=== PATIENT | female | born 1935 | race Caucasian/White ===

== ENCOUNTER 2016-09-24 19:30 | Emergency (ER) | payer OTHER ==
[2016-09-24 19:42] VITALS: BMI 28.0
--- NOTE | 2016-09-24 20:39 | PDOC ---
History of Present Illness - General Chief Complaint: Vomiting/Diarrhea Stated Complaint: VOMITING/DIARRHEA Time Seen by Provider: 09/24/16 19:59 History Source: Patient Exam Limitations: Language Barrier - History of Present Illness Initial Comments: 09/24/16 20:32 Patient is a 81F with a history of gastritis here today for vomiting and diarrhea. She states that the vomiting started 3 hours ago. She vomited six times with a mostly yellow fluid. She denies any bloody or coffee ground emesis. She had one episode of diarrhea, no black tarry stools or araceli blood was in the stool. After vomiting, she felt a little dizzy. She's had decreased PO intake and a headache since vomiting. She denies chest pain, shortness of breath, abdominal pain, and heartburn. She had no fevers or chills. She has no sick contacts at home. She attended a wedding yesterday where she states she ate more than normal, but doesn't know of anyone else there who is sick. Past History - Past Medical History Allergies/Adverse Reactions: Allergies Allergy/AdvReac Type Severity Reaction Status Date / Time No Known Allergies Allergy Verified 09/24/16 19:42 Home Medications: Ambulatory Orders RX: Ca Citrate/Mgox/Vit D3/B6/Min [Citracal Plus Tablet] 1 each PO DAILY RX: Cholecalciferol (Vitamin D3) [Vitamin D-3] 2,000 unit PO DAILY 10/27/12 RX: Esomeprazole Mag Trihydrate [Nexium] 40 mg PO DAILY 10/27/12 RX: Ranitidine [Zantac -] 150 mg PO BID 10/27/12 RX: Glucosamine Sulfate Dipot Chlr [Glucosamine] 1,000 mg PO DAILY 11/12/12 RX: Vit B12/Intrinsic Fact/Folate [Intrinsi Y49-Byighe Tablet] 1 each PO DAILY 11/12/12 RX: Ondansetron HCl [Zofran] 4 mg PO BID PRN #10 tablet 09/24/16 RX: Sulfamethoxazole/Trimethoprim [Bactrim Ds Tablet] 1 each PO BID #5 tablet Anemia: No Asthma: No Cancer: No Cardiac Disorders: No Hx Myocardial Infarction: No CVA: No COPD: No CHF: No Dementia: No Diabetes: No GI Disorders: Yes (IBS;GERD;COLON POLYPS) Disorders: No HTN: No Hypercholesterolemia: Yes Liver Disease: Yes (FATTY LIVER) Seizures: No Thyroid Disease: No Other medical history: hiatal hernia - Surgical History Abdominal Surgery: No Appendectomy: No Cardiac Surgery: No Cholecystectomy: No Lung Surgery: No Neurologic Surgery: No Orthopedic Surgery: No - Psycho/Social/Smoking Cessation Hx Suicidal Ideation: No Smoking History: Never smoked Have you smoked in the past 12 months: No Hx Alcohol Use: No Drug/Substance Use Hx: No Substance Use Type: None Hx Substance Use Treatment: No Review of Systems - Review of Systems Is the patient limited Kosovan proficient: Yes Constitutional: Yes: Loss of Appetite. No: Chills, Fever HEENTM: Yes: Other (Headache). No: Difficulty Swallowing Respiratory: No: Cough, Shortness of Breath, SOB with Exertion Cardiac (ROS): No: Chest Pain, Edema ABD/GI: Yes: Abdominal Distended, Diarrhea, Nausea, Vomiting. No: Rectal Bleeding, Tarry Stools : No: Burning, Dysuria, Flank Pain Neurological: Yes: Headache, Dizziness. No: Weakness *Physical Exam - Vital Signs Last Vital Signs Temp Pulse Resp BP Pulse Ox 97.5 F L 62 18 137/59 99 09/24/16 19:39 09/24/16 19:39 09/24/16 19:39 09/24/16 19:39 09/24/16 19:39 - Physical Exam General Appearance: Yes: Nourished, Appropriately Dressed, Mild Distress HEENT: positive: EOMI, Normal Voice Respiratory/Chest: positive: Lungs Clear, Normal Breath Sounds. negative: Respiratory Distress Cardiovascular: positive: Regular Rhythm, Regular Rate, S1, S2. negative: Edema Gastrointestinal/Abdominal: positive: Normal Bowel Sounds, Tender, Flat, Soft. negative: Organomegaly Musculoskeletal: negative: CVA Tenderness, CVA Tenderness (R), CVA Tenderness (L ) Extremity: positive: Normal Capillary Refill Neurologic: positive: skein bleacher II-XII NML intact, Fully Oriented, Alert, Normal Mood/ Affect ED Treatment Course - LABORATORY CBC & Chemistry Diagram: 09/24/16 21:00 09/24/16 21:00 Medical Decision Making - Medical Decision Making 09/24/16 20:52 Patient is a 81F with a PMH of gastritis here today complaining of vomiting x6 and diarrhea x1 for the past 3 hours. Vital signs are stable. No abdominal pain on exam. Will draw CBC, CMP, UA and perform an ECG. 1L bolus and 4mg zofran given. Will reassess after medications take affect and labs return. 09/24/16 22:47 CMP and CBC normal. UA shows UTI. Reassessment shows no CVA and no suprapubic tenderness. Patient has improved after fluids and zofran. Will start one bactrim ds PO dose here in ED with prescription for a 3 day course as an outpatient. Return precautions given. Will discharge to home. *DC/Admit/Observation/Transfer Diagnosis at time of Disposition: Urinary tract infectious disease - Discharge Dispostion Condition at time of disposition: Improved Admit: No - Prescriptions Prescriptions: RX: Sulfamethoxazole/Trimethoprim [Bactrim Ds Tablet] 1 each PO BID #5 tablet RX: Ondansetron HCl [Zofran] 4 mg PO BID PRN #10 tablet PRN Reason: Nausea - Referrals Referrals: Spencer Duvall MD [Primary Care Provider] - - Patient Instructions Printed Discharge Instructions: Urinary Tract Infection Additional Instructions: Please return if you develop fever, abdominal pain, back pain, shortness of breath, confusion, or you fail to improve. Print Language: ARMENIAN - Attestations Physician Attestion: 09/24/16 20:52 I, Dr. Dayron Salazar, attest that this document has been prepared under my direction and personally reviewed by me in its entirety. I further attest, that it accurately reflects all work, treatment, procedures and medical decision -making performed by me.
[2016-09-24] MEDS ORDERED: ONDANSETRON 4 MG/2 ML VIAL ONE (20:48)
[2016-09-24] MEDS ORDERED: ONDANSETRON 4 MG/2 ML VIAL IVPB ONE (20:48)
[2016-09-24] MEDS ORDERED: SODIUM CHLORIDE 1,000 ML IV STA (20:48)
[2016-09-24 21:30] LABS: BASOPHIL 0.2 % (0-2.0); EOSINOPHIL 0.3 % (0-4.5); MCH 28.7 pg (25.7-33.7); MCHC 33.8 g/dl (32.0-36.0); MEAN CELL VOLUME 84.9 fl (80-96); NEUTROPHILS 82.4 % (42.8-82.8); PLATELET COUNT 120 K/MM3 (134-434); RDW 14.8 % (11.6-15.6); WHITE BLOOD COUNT 8.1 K/mm3 (4.0-10.0)
[2016-09-24 21:39] LABS: ALBUMIN 3.8 g/dl (3.4-5.0); ANION GAP 8 (8-16); BILIRUBIN,TOTAL 0.4 mg/dL (0.2-1.0); CO2 27 mmol/L (21-32); CREATININE 0.6 mg/dL (0.55-1.02); GLUCOSE,RANDOM 133 mg/dL (74-106); SGOT/AST 18 U/L (15-37); SGPT/ALT 22 U/L (12-78)
[2016-09-24 21:40] LABS: ALK PHOS 81 U/L (45-117)
--- NOTE | 2016-09-24 21:51 | PDOC ---
Attending Attestation - Resident Resident Name: [email or web address] - ED Attending Attestation I have performed the following: I have examined & evaluated the patient, The case was reviewed & discussed with the resident, I agree w/resident's findings & plan, Exceptions are as noted - HPI HPI: 09/24/16 22:41 81y F hx htn presents with complaint of feeling lightheaded and nauseus since approx 4pm. pt states she felt dizzy for approx 20 minutes at home, denies any visio nchanges, speech changes, focal numbness/tingling/weakness, sob, cough, palpitations, fever/chills, abd pain, back pain dysuria, diarrhea, melena/bpr. pt states she feels significantly improved currently after fluids. Constitutional - no reported Fever, Chills, HEENT: no reported vision changes, sore throat Respiratory: no reported cough, sob, hemoptysis Cardiac: no reported chest pain, palpitations, light headedness, leg swelling Abd/GI: no reported abd pain, nausea, vomiting, blood per rectum, melena, diarrhea : no reported dysuria, frequency, discharge Musculskelatal - no reported back pain, joint swelling skin - no reported bruising, erythema, rash neurological: no reported headache, numbness, focal weakness, tingling, ataxia, hematologic: no reported anemia, easy bruising, easy bleeding GENERAL: The patient is awake, alert, and fully oriented, Nontoxic - in no acute distress. HEAD: Normocephalic, atraumatic. EYES: extraocular movements intact, sclera anicteric, conjunctiva clear. ENT: Normal voice, Moist mucous membranes, no nystagmus NECK: Normal range of motion, supple LUNGS: Breath sounds equal, clear to auscultation bilaterally. No wheezes, no rhonchi, no rales. HEART: Regular rate and rhythm, normal S1 and S2 without murmur, rub or gallop. ABDOMEN: Soft, nontender, normoactive bowel sounds. No guarding, no rebound. . No CVA tenderness EXTREMITIES: Normal range of motion, no edema. No clubbing or cyanosis. No cords, erythema, or tenderness. NEUROLOGICAL: strength 5/5 in upper/ower extremities, noraml gait, normal finger to nose, CN2-12 intact, sensation grossling intact, normal rapid alternating movements PSYCH: Normal mood, normal affect. SKIN: Warm, Dry, normal turgor, pts labs reviewed and are normal pt feeling improved UA c/w UTI will treat patient for UTI and PMD fu return precautions were discussed - Physicial Exam PE: 09/27/16 07:19 see above - Medical Decision Making 09/27/16 07:19 see above Heart Score/ECG Review - ECG Impressions Comment:: 09/25/16 05:58 Twelve-lead EKG was performed and reviewed by me. There is normal sinus rhythm with a normal rate. rate of 63 Abnormal R wave progression Q waves in lead 3
[2016-09-24 22:25] LABS: URINE APPEARANCE CLEAR; URINE BILIRUBIN NEGATIVE (NEGATIVE); URINE COLOR STRAW; URINE GLUCOSE (UA) NEGATIVE (NEGATIVE); URINE KETONE TRACE (NEGATIVE); URINE NITRITE NEGATIVE (NEGATIVE); URINE PROTEIN NEGATIVE (NEGATIVE); URINE UROBILINOGEN NEGATIVE E.U./dl (0.2-1.0)
[2016-09-24 22:28] LABS: URINE BLOOD 1+ (NEGATIVE); URINE LEUK ESTERASE 3+ (NEGATIVE)
[2016-09-24 22:30] LABS: URINE MUCUS RARE; URINE RBC 4 /hpf (0-3); URINE WBC 45 /hpf (3-5)
[2016-09-24] MEDS ORDERED: SULFAMETHOXAZOLE/TRIMETHOPRIM 800MG/160MG D.S. TABLET PO ONE (22:41)
[2016-09-24] MEDS ORDERED: SULFAMETHOXAZOLE/TRIMETHOPRIM 800MG/160MG D.S. TABLET ONE (23:05)
[2016-09-24 23:12] VITALS: BP 130/67; PULSE 60; TEMP 97.7
--- NOTE | 2016-09-25 13:37 | EKG ---
Test Reason : Blood Pressure : / mmHG Vent. Rate : 063 BPM Atrial Rate : 063 BPM P-R Int : 160 ms QRS Dur : 074 ms QT Int : 432 ms P-R-T Axes : 059 010 065 degrees QTc Int : 442 ms SINUS RHYTHM WITH INTRA ATRIAL CONDUCTION ABNORMALITY CANNOT RULE OUT INFERIOR INFARCT , AGE UNDETERMINED SLOW R WAVE PROGRESSION V1 TO V3 NONSPEC[address] AND T WAVE ABNORMALITY ABNORMAL ECG NO PREVIOUS ECGS AVAILABLE CLINICAL CORELATION RECOMMENDED Confirmed by JADE RENAE MD ([id number]) on 09/25/2016 1:36:58 PM Referred By: Confirmed By:JADE RENAE MD
== END 2016-09-24 23:13 | disposition home or self-care (01) ==
LOC: JER 19:30
PROC: 3E033GC Introduction of Other Therapeutic Substance into Peripheral Vein, Percutaneous Approach (ICD-10-PCS; principal; 2016-09-24)
DX: N39.0 Urinary tract infection, site not specified (principal)
CPT/HCPCS: 36415; 80053; 81003; 81015; 85025; 93005; 93010; 96374; 99282-25

== ENCOUNTER 2022-03-18 13:04 | Emergency (ER) | payer OTHER ==
[2022-03-18 13:15] VITALS: BMI 24.6
[2022-03-18] MEDS ORDERED: MAG HYDROX/AL HYDROX/SIMETH 30 ML UNIT-DOSE CUP PO ONE (13:53)
[2022-03-18] MEDS ORDERED: ONDANSETRON 4 MG/2 ML VIAL IVPB ONE (13:53)
[2022-03-18] MEDS ORDERED: ACETAMINOPHEN 1000 MG/100 ML BAG IVPB ONE (13:53)
[2022-03-18] MEDS ORDERED: LACTATED RINGERS SOLUTION 1000 ML INFUS.BAG IV ONE (13:53)
[2022-03-18] MEDS ORDERED: FAMOTIDINE 20 MG/50 ML IVPB 20 MG/50 ML MG IVPB ONE ×2 (13:54→14:09)
[2022-03-18] MEDS ORDERED: MAG HYDROX/AL HYDROX/SIMETH 30 ML UNIT-DOSE CUP ONE (14:09)
[2022-03-18] MEDS ORDERED: ACETAMINOPHEN INJECTION 100 ML IVPB ONE (14:09)
[2022-03-18] MEDS ORDERED: ONDANSETRON 4 MG/2 ML VIAL ONE (14:09)
[2022-03-18 14:40] LABS: BASO % 0.2 % (0-2.0); EOS % 0.2 % (0-4.5); HEMATOCRIT 40.3 % (32.4-45.2); HEMOGLOBIN 13.6 GM/dL (10.7-15.3); LYMPH % 26.5 % (8-40); MCH 28.6 pg (25.7-33.7); MCHC 33.8 g/dl (32.0-36.0); MEAN CELL VOLUME 84.6 fl (80-96); MEAN PLT VOLUME 8.8 fl (7.5-11.1); MONO % 9.4 % (3.8-10.2); NEUT % 63.7 % (42.8-82.8); PLATELET COUNT 169 10^3/uL (134-434); RBC 4.77 M/mm3 (3.60-5.2); RDW 14.3 % (11.6-15.6); WHITE BLOOD COUNT 6.7 K/mm3 (4.0-10.0)
[2022-03-18 14:47] LABS: INR 1.18 (0.83-1.09); PROTHROMBIN TIME (PATIENT) 13.6 SEC (9.7-13.0)
[2022-03-18 14:49] LABS: ACTIVATED PTT 29.3 SECONDS (25.2-36.5)
[2022-03-18 14:58] LABS: ALBUMIN 3.6 g/dl (3.4-5.0); BLOOD UREA NITROGEN 23.5 mg/dL (7-18); CALCIUM 9.3 mg/dL (8.5-10.1); MAGNESIUM 2.2 mg/dL (1.8-2.4)
[2022-03-18 15:01] LABS: CREATININE 0.9 mg/dL (0.55-1.3)
[2022-03-18 15:03] LABS: BILIRUBIN,TOTAL 0.8 mg/dL (0.2-1); TOT PROT 6.9 g/dl (6.4-8.2)
[2022-03-18 16:16] LABS: EPI CELLS 13 /uL (0-25.1); HYALINE CASTS 1 /uL (0-3.1); URINE APPEARANCE CLEAR; URINE BACTERIA 84 /uL (0-1359); URINE BILIRUBIN NEGATIVE (NEGATIVE); URINE COLOR YELLOW; URINE GLUCOSE (UA) NEGATIVE (NEGATIVE); URINE KETONE NEGATIVE (NEGATIVE); URINE LEUK ESTERASE 1+ (NEGATIVE); URINE NITRITE NEGATIVE (NEGATIVE); URINE PROTEIN NEGATIVE (NEGATIVE); URINE RBC 21 /uL (0-23.9); URINE UROBILINOGEN 0.2 mg/dL (0.2-1.0); URINE WBC 119 /uL (0-25.8)
[2022-03-18 19:34] VITALS: BP 132/70; PULSE 63; RESP 19; TEMP 98
== END 2022-03-18 20:58 | disposition home or self-care (01) ==
LOC: JER 13:04
PROC: 3E0333Z Introduction of Anti-inflammatory into Peripheral Vein, Percutaneous Approach (ICD-10-PCS; principal; 2022-03-18)
PROC: 3E033GC Introduction of Other Therapeutic Substance into Peripheral Vein, Percutaneous Approach (ICD-10-PCS; 2022-03-18)
DX: J09.X2 Influenza due to identified novel influenza A virus with other respiratory manifestations (principal); R53.1 Weakness; M79.10 Myalgia, unspecified site
CPT/HCPCS: 0241U-QW; 36415; 71045-TC-FY; 71250-TC; 76705-TC; 80053; 81003; 83690; 83735; 84484; 85025; 85610; 85730; 86850; 86900; 86901; 87040; 87086; 93005; 93010; 99285-25

== ENCOUNTER 2024-05-18 17:01 | Emergency (ER) | payer OTHER ==
[2024-05-18 17:38] VITALS: RESP 20; TEMP 97.9; BMI 24.2
[2024-05-18 18:22] LABS: BASO % 0.1 % (0-2.0); EOS % 0.2 % (0-4.5); HEMOGLOBIN 14.2 GM/dL (10.7-15.3); LYMPH % 12.9 % (8-40); MCHC 34.6 g/dl (32.0-36.0); MEAN CELL VOLUME 83.7 fl (80-96); MONO % 5.7 % (3.8-10.2); NEUT % 81.1 % (42.8-82.8); PLATELET COUNT 135 10^3/uL (134-434); RDW 15.3 % (11.6-15.6); WHITE BLOOD COUNT 9.3 K/mm3 (4.0-10.0)
[2024-05-18] MEDS ORDERED: ACETAMINOPHEN INJECTION 100 ML ONE (18:35)
[2024-05-18 18:39] LABS: EPI CELLS 29 /uL (0-25.1); HYALINE CASTS 19 /uL (0-3.1); PH,URINE 5.5 (5.0-8.0); URINE APPEARANCE CLOUDY; URINE BACTERIA 988 /uL (0-1359); URINE BILIRUBIN NEGATIVE (NEGATIVE); URINE COLOR DK YELLOW; URINE GLUCOSE (UA) NEGATIVE (NEGATIVE); URINE KETONE TRACE (NEGATIVE); URINE LEUK ESTERASE 2+ (NEGATIVE); URINE NITRITE NEGATIVE (NEGATIVE); URINE PROTEIN 1+ (NEGATIVE); URINE RBC 29 /uL (0-23.9); URINE WBC 825 /uL (0-25.8)
[2024-05-18 18:41] LABS: POTASSIUM 4.3 mmol/L (3.5-5.1)
[2024-05-18 18:43] LABS: ALBUMIN 4.1 g/dl (3.4-5.0); BLOOD UREA NITROGEN 28.8 mg/dL (7-18); CALCIUM 9.6 mg/dL (8.5-10.1)
[2024-05-18 18:47] LABS: CREATININE 1.7 mg/dL (0.55-1.3)
[2024-05-18 18:48] LABS: BILIRUBIN,TOTAL 0.8 mg/dL (0.2-1); TOT PROT 7.2 g/dl (6.4-8.2)
[2024-05-18 19:27] LABS: URINE CRYSTALS FEW AMORPHOUS /hpf
[2024-05-18] MEDS: ACETAMINOPHEN 1000 MG/100 ML BAG IVPB ONE (19:48)
[2024-05-18] MEDS: SODIUM CHLORIDE 0.9% 500 ML INFUS.BAG IV ONE (19:48)
[2024-05-18 20:11] VITALS: BP 145/52; PULSE 62
[2024-05-18] MEDS ORDERED: ONDANSETRON 4 MG/2 ML VIAL ONE (21:31)
[2024-05-18] MEDS: ONDANSETRON 4 MG/2 ML VIAL IVPUSH ONE (21:35)
== END 2024-05-18 21:54 | disposition home or self-care (01) ==
LOC: JER 17:01
PROC: 3E033NZ Introduction of Analgesics, Hypnotics, Sedatives into Peripheral Vein, Percutaneous Approach (ICD-10-PCS; principal; 2024-05-18)
DX: N17.9 Acute kidney failure, unspecified (principal); R10.11 Right upper quadrant pain; R53.1 Weakness; R42 Dizziness and giddiness; R11.0 Nausea; R68.83 Chills (without fever); R61 Generalized hyperhidrosis
CPT/HCPCS: 36415; 71045-TC-FY; 74176-TC; 76705-TC; 80053; 81003; 83690; 84484; 85025; 87086; 87186; 93005; 93010; 96374; 99285-25; J0131

== ENCOUNTER 2024-05-22 17:49 | Observation (INO) | payer OTHER ==
[2024-05-22 20:26] LABS: BASO % 0.7 % (0-2.0); EOS % 2.1 % (0-4.5); HEMATOCRIT 37.8 % (32.4-45.2); HEMOGLOBIN 13.2 GM/dL (10.7-15.3); MCH 29.3 pg (25.7-33.7); MCHC 34.9 g/dl (32.0-36.0); MONO % 10.5 % (3.8-10.2); NEUT % 55.7 % (42.8-82.8); PLATELET COUNT 128 10^3/uL (134-434); WHITE BLOOD COUNT 5.9 K/mm3 (4.0-10.0)
[2024-05-22] MEDS ORDERED: ACETAMINOPHEN INJECTION 100 ML ONE (20:47)
[2024-05-22] MEDS ORDERED: ONDANSETRON 4 MG/2 ML VIAL ONE (20:47)
[2024-05-22] MEDS ORDERED: MAG HYDROX/AL HYDROX/SIMETH 30 ML UNIT-DOSE CUP ONE (20:47)
[2024-05-22 20:53] LABS: POTASSIUM 4.1 mmol/L (3.5-5.1)
[2024-05-22] MEDS: MAG HYDROX/AL HYDROX/SIMETH 30 ML UNIT-DOSE CUP PO ONE (20:54)
[2024-05-22] MEDS: ACETAMINOPHEN 1000 MG/100 ML BAG IVPB ONE (20:54)
[2024-05-22 20:55] LABS: BLOOD UREA NITROGEN 30.6 mg/dL (7-18)
[2024-05-22] MEDS: ONDANSETRON 4 MG/2 ML VIAL IVPB ONE (20:55)
[2024-05-22 20:56] LABS: ALBUMIN 3.7 g/dl (3.4-5.0); CALCIUM 9.3 mg/dL (8.5-10.1); MAGNESIUM 2.2 mg/dL (1.8-2.4)
[2024-05-22 21:00] LABS: CREATININE 1.2 mg/dL (0.55-1.3)
[2024-05-22 21:01] LABS: BILIRUBIN,TOTAL 0.5 mg/dL (0.2-1); TOT PROT 6.8 g/dl (6.4-8.2)
[2024-05-22 21:18] LABS: INR 1.19 (0.83-1.09); PROTHROMBIN TIME (PATIENT) 13.1 SEC (9.7-13.0)
[2024-05-22 21:21] LABS: ACTIVATED PTT 30.6 SECONDS (25.2-36.5)
[2024-05-22] MEDS ORDERED: MAG HYDROX/AL HYDROX/SIMETH 30 ML UNIT-DOSE CUP PO PRN (21:50)
[2024-05-22] MEDS ORDERED: ACETAMINOPHEN 1000 MG/100 ML BAG IVPB PRN (21:54)
[2024-05-22] MEDS: SODIUM CHLORIDE 0.9% 500 ML INFUS.BAG IV ONE (22:03)
[2024-05-22] MEDS ORDERED: ONDANSETRON 4 MG/2 ML VIAL IVPUSH PRN (22:15)
[2024-05-22 22:42] VITALS: BMI 24.0
[2024-05-22] MEDS: PREGABALIN 50 MG CAPSULE PO SCH (23:10)
[2024-05-22] MEDS: PANTOPRAZOLE SODIUM 40 MG VIAL IVPUSH SCH (23:11)
[2024-05-23 09:32] LABS: BASO % 0.4 % (0-2.0); EOS % 2.6 % (0-4.5); HEMATOCRIT 38.9 % (32.4-45.2); HEMOGLOBIN 13.6 GM/dL (10.7-15.3); LYMPH % 33.7 % (8-40); MCH 29.2 pg (25.7-33.7); MCHC 34.8 g/dl (32.0-36.0); MEAN CELL VOLUME 83.9 fl (80-96); MEAN PLT VOLUME 9.6 fl (7.5-11.1); MONO % 7.7 % (3.8-10.2); NEUT % 55.6 % (42.8-82.8); PLATELET COUNT 136 10^3/uL (134-434); RBC 4.63 M/mm3 (3.60-5.2); RDW 15.1 % (11.6-15.6); WHITE BLOOD COUNT 5.3 K/mm3 (4.0-10.0)
[2024-05-23 10:01] LABS: POTASSIUM 4.2 mmol/L (3.5-5.1)
[2024-05-23 10:19] LABS: ALBUMIN 3.8 g/dl (3.4-5.0); BLOOD UREA NITROGEN 22.9 mg/dL (7-18); MAGNESIUM 2.3 mg/dL (1.8-2.4)
[2024-05-23 10:22] LABS: CREATININE 1.1 mg/dL (0.55-1.3); PHOSPHOROUS 2.9 mg/dL (2.5-4.9)
[2024-05-23 10:24] LABS: BILIRUBIN,TOTAL 0.9 mg/dL (0.2-1)
[2024-05-23] MEDS: PANTOPRAZOLE 20 MG TABLET PO SCH (10:32)
[2024-05-23] MEDS: LOSARTAN 50MG/HCTZ 12.5MG 1 TAB PO SCH (10:33)
[2024-05-23 13:04] LABS: EPI CELLS 15 /uL (0-25.1); HYALINE CASTS 0 /uL (0-3.1); URINE APPEARANCE CLOUDY; URINE BACTERIA 1756 /uL (0-1359); URINE BILIRUBIN NEGATIVE (NEGATIVE); URINE COLOR YELLOW; URINE GLUCOSE (UA) NEGATIVE (NEGATIVE); URINE KETONE NEGATIVE (NEGATIVE); URINE LEUK ESTERASE 3+ (NEGATIVE); URINE NITRITE NEGATIVE (NEGATIVE); URINE PROTEIN NEGATIVE (NEGATIVE); URINE RBC 28 /uL (0-23.9); URINE UROBILINOGEN 0.2 mg/dL (0.2-1.0); URINE WBC 873 /uL (0-25.8)
[2024-05-23] MEDS: CEFTRIAXONE 1 G/50 ML PREMIX 50 ML IVPB ONE (17:03)
[2024-05-23] MEDS: HEPARIN NA (PORCINE) 5,000 UNITS/ML 1ML VIAL SQ SCH (21:04)
[2024-05-24 08:51] LABS: BASO % 0.2 % (0-2.0); EOS % 2.3 % (0-4.5); HEMATOCRIT 39.6 % (32.4-45.2); HEMOGLOBIN 13.9 GM/dL (10.7-15.3); LYMPH % 33.3 % (8-40); MCH 29.5 pg (25.7-33.7); MEAN CELL VOLUME 84.4 fl (80-96); MEAN PLT VOLUME 9.6 fl (7.5-11.1); MONO % 7.3 % (3.8-10.2); NEUT % 56.9 % (42.8-82.8); PLATELET COUNT 139 10^3/uL (134-434); RBC 4.69 M/mm3 (3.60-5.2); WHITE BLOOD COUNT 6.3 K/mm3 (4.0-10.0)
[2024-05-24 09:01] LABS: POTASSIUM 4.4 mmol/L (3.5-5.1)
[2024-05-24] MEDS: CEFTRIAXONE 1 G/50 ML PREMIX 50 ML IVPB SCH (09:07)
[2024-05-24 09:09] LABS: ALBUMIN 3.8 g/dl (3.4-5.0); CALCIUM 9.6 mg/dL (8.5-10.1)
[2024-05-24 09:11] LABS: MAGNESIUM 2.1 mg/dL (1.8-2.4)
[2024-05-24 09:12] LABS: BLOOD UREA NITROGEN 23.5 mg/dL (7-18); CREATININE 1.1 mg/dL (0.55-1.3)
[2024-05-24 09:14] LABS: BILIRUBIN,TOTAL 0.6 mg/dL (0.2-1)
[2024-05-25 09:23] LABS: INR 1.14 (0.83-1.09); PROTHROMBIN TIME (PATIENT) 12.4 SEC (9.7-13.0)
[2024-05-25 09:56] LABS: POTASSIUM 3.9 mmol/L (3.5-5.1)
[2024-05-25 10:35] LABS: BASO % 0.5 % (0-2.0); EOS % 2.2 % (0-4.5); HEMATOCRIT 41.3 % (32.4-45.2); HEMOGLOBIN 14.2 GM/dL (10.7-15.3); LYMPH % 31.8 % (8-40); MCH 29.3 pg (25.7-33.7); MCHC 34.4 g/dl (32.0-36.0); MEAN CELL VOLUME 85.3 fl (80-96); MEAN PLT VOLUME 9.9 fl (7.5-11.1); MONO % 7.3 % (3.8-10.2); NEUT % 58.2 % (42.8-82.8); PLATELET COUNT 147 10^3/uL (134-434); RBC 4.84 M/mm3 (3.60-5.2); RDW 15.3 % (11.6-15.6); WHITE BLOOD COUNT 5.7 K/mm3 (4.0-10.0)
[2024-05-25 10:36] LABS: ALBUMIN 3.9 g/dl (3.4-5.0); BLOOD UREA NITROGEN 26.3 mg/dL (7-18); MAGNESIUM 1.9 mg/dL (1.8-2.4)
[2024-05-25 10:37] LABS: CREATININE 1.3 mg/dL (0.55-1.3)
[2024-05-25 10:38] LABS: BILIRUBIN,TOTAL 0.6 mg/dL (0.2-1); TOT PROT 7.5 g/dl (6.4-8.2)
[2024-05-25 10:40] LABS: CALCIUM 9.6 mg/dL (8.5-10.1)
[2024-05-25] MEDS ORDERED: PANTOPRAZOLE 40 MG TABLET PO SCH (13:04)
[2024-05-25 13:08] VITALS: BP 147/44; PULSE 64; RESP 18; TEMP 97.5
[2024-05-26] MEDS ORDERED: CEPHALEXIN MONOHYDRATE 500 MG CAPSULE (UD) PO SCH (10:00)
== END 2024-05-25 14:23 | disposition home or self-care (01) ==
LOC: JER 17:49 → JERBED 19:14 → UNDOADMOB 19:14 → INTOOBSV 19:14 → J7W 22:55 → JERBED 22:55 → UNDODISIN 05-25 11:38 → JERBED 05-25 13:12 → J7W 05-25 13:12
PROVIDERS: ADMIT Internal Medicine; ATTEND Nurse Practitioner Acute Care
PROC: 0DB78ZX Excision of Stomach, Pylorus, Via Natural or Artificial Opening Endoscopic, Diagnostic (ICD-10-PCS; 2024-05-25)
PROC: 3E03329 Introduction of Other Anti-infective into Peripheral Vein, Percutaneous Approach (ICD-10-PCS; 2024-05-25)
PROC: 3E033NZ Introduction of Analgesics, Hypnotics, Sedatives into Peripheral Vein, Percutaneous Approach (ICD-10-PCS; 2024-05-25)
PROC: 3E023GC Introduction of Other Therapeutic Substance into Muscle, Percutaneous Approach (ICD-10-PCS; 2024-05-25)
PROC: 3E0337Z Introduction of Electrolytic and Water Balance Substance into Peripheral Vein, Percutaneous Approach (ICD-10-PCS; 2024-05-25)
PROC: 0DB98ZX Excision of Duodenum, Via Natural or Artificial Opening Endoscopic, Diagnostic (ICD-10-PCS; principal; 2024-05-25 10:00)
DX: K29.70 Gastritis, unspecified, without bleeding (principal); I25.10 Atherosclerotic heart disease of native coronary artery without angina pectoris; I11.9 Hypertensive heart disease without heart failure; N39.0 Urinary tract infection, site not specified; B96.20 Unspecified Escherichia coli [E. coli] as the cause of diseases classified elsewhere; K58.9 Irritable bowel syndrome, unspecified; I25.2 Old myocardial infarction
CPT/HCPCS: 36415; 71045-TC-FY; 76700-TC; 80053; 81003; 83690; 83735; 84100; 84484; 85025; 85610; 85730; 86850; 86900; 86901; 87086; 87186; 88305-TC; 88341-TC; 88342-TC; 93005; 93010; 96365; 96366; 96372; 96375; 99285-25; G0378; J0131; J1644